=== PATIENT | female | born 1985 | race Two or more races ===

== ENCOUNTER → 2018-03-02 | Outpatient (REF) | payer OTHER | LOC: M LAB REF 12:04 | DX: R50.9 Fever, unspecified (principal) | CPT/HCPCS: 87086 ==

== ENCOUNTER → 2018-03-11 | Outpatient (CLI) | payer OTHER | LOC: M LRY 09:38 | DX: R91.8 Other nonspecific abnormal finding of lung field (principal) | CPT/HCPCS: 71046 ==

== ENCOUNTER → 2018-12-07 | Outpatient (CLI) | payer OTHER ==
[2018-12-07 07:12] LABS: BLOOD UREA NITROGEN 7 MG/DL (7-18); CALCIUM LEVEL 8.6 MG/DL (8.5-10.1); CARBON DIOXIDE LEVEL 27 MEQ/L (21-32); CHLORIDE LEVEL 105 MEQ/L (98-107); CREATININE FOR GFR 0.63 MG/DL (0.55-1.30); FREE THYROXINE INDEX 3.1 % (1.3-4.8); GLOMERULAR FILTRATION RATE > 60.0 (>60); GLUCOSE, FASTING 89 MG/DL (70-100); MAGNESIUM LEVEL 2.3 MG/DL (1.8-2.4); POTASSIUM SERUM 3.6 MEQ/L (3.5-5.1); SODIUM LEVEL 139 MEQ/L (136-145); T UPTAKE 27 % (30-39); THYROXINE (T4) 11.5 UG/DL (4.5-12.0)
== END ==
LOC: M LAB 06:07
PROVIDERS: ATTEND Internal Medicine Cardiovascular Disease
DX: R00.2 Palpitations (principal)

== ENCOUNTER 2019-01-31 07:39 | Day surgery (SDC) | payer OTHER ==
[~2019-01-31] VITALS: Ht 157.5 cm; Wt 56.7 kg
[~2019-01-31 07:39] MED LIST: ALLE180T33 PO; FLON1SPR; LR 1,000 ML IV SCH; MONOTAB PO; MULT-40 PO; SM HTAB3 PO; VITA500075 PO
[2019-01-31 08:08] LABS: URINE PREG TEST NEGATIVE (NEGATIVE)
[2019-01-31] MEDS ORDERED: LIDOCAINE 2% INJ 100 MG/5 ML SDV (FOR ANES.) As Ordered ONE (09:26)
[2019-01-31] MEDS ORDERED: PROPOFOL 200 MG/20 ML VIAL As Ordered ONE (09:26)
[2019-01-31] MEDS ORDERED: ROCURONIUM BROMIDE 50 MG/5 ML VIAL As Ordered ONE (09:26)
[2019-01-31] MEDS ORDERED: ONDANSETRON 4MG/2ML VIAL (J2405) As Ordered ONE (09:29)
[2019-01-31] MEDS ORDERED: dexameTHASONE 4 MG/ML 1ML VIAL (J1100) As Ordered ONE (09:33)
[2019-01-31] MEDS ORDERED: KETOROLAC 60 MG/2 ML VIAL (J1885) As Ordered ONE (09:34)
[2019-01-31] MEDS ORDERED: fentaNYL 250 MCG/5 ML INJECTION (J3010) As Ordered ONE (09:35)
[2019-01-31] MEDS ORDERED: MIDAZOLAM INJ 2 MG/2 ML VIAL (J2250) As Ordered ONE (09:35)
[2019-01-31] MEDS ORDERED: SUGAMMADEX SODIUM 500 MG/5 ML VIAL (BRIDION) As Ordered ONE (12:00)
[2019-01-31] MEDS ORDERED: IBUPROFEN 600 MG TAB PO PRN (13:15)
[2019-01-31] MEDS ORDERED: LR 1,000 ML IV SCH ×2 (13:15)
[2019-01-31] MEDS ORDERED: METOCLOPRAMIDE INJ 10MG/2ML VIAL (J2765) IV PRN (13:15)
[2019-01-31] MEDS ORDERED: fentaNYL 100 MCG/2 ML INJECTION (J3010) IV PRN (13:15)
[2019-01-31] MEDS ORDERED: ONDANSETRON 4MG/2ML VIAL (J2405) IV PRN (13:15)
[2019-01-31] MEDS ORDERED: NORCO, ANEXSIA 5/325MG TABLET (HYDROcodone/ACETAMINOPHEN) PO PRN (13:15)
[2019-01-31] MEDS ORDERED: HYDROMORPHONE HCL 0.5 MG/ 0.5 ML SYRINGE (J1170 PER 1) IV PRN (13:15)
[2019-01-31] MEDS ORDERED: PERCOCET 5MG/325MG TAB PO PRN (13:15)
[2019-01-31 15:05] VITALS: BP 105/59
--- NOTE | 2019-01-31 21:25 | RO ---
DATE OF PROCEDURE: 01/31/2019 PREOPERATIVE DIAGNOSIS: Desire for permanent sterilization by salpingectomy. POSTOPERATIVE DIAGNOSIS: Desire for permanent sterilization by salpingectomy. PROCEDURE: Laparoscopy with bilateral salpingectomy and some incidental lysis of adhesions. SURGEON: Dr. Melodie Flores PICK PULLING MACHINE TENDER: None. ANESTHESIA: General endotracheal anesthesia. DESCRIPTION OF PROCEDURE: Joamr was brought to the operating room where sufficient general endotracheal anesthesia was induced, and she was prepped, draped and positioned in the usual sterile fashion with the uterine manipulator placed after the uterus had been sounded to 8 and the bladder emptied. Attention was then turned to the abdomen where a semilunar incision was made at the base of the umbilicus and sharp and blunt dissection continued through subcutaneous tissues to the level of the rectus fascia, which was elevated with Jeff clamps, transversely incised and secured with #0 Vicryl retention suture. The peritoneum was entered under direct visualization in an open laparoscopic technique, and the Desiree cannula placed and secured with the #0 Vicryl retention sutures, following which CO2 insufflation was begun. After adequate CO2 insufflation, the peritoneal cavity was visualized. There were normal shiny peritoneal surfaces throughout without excrescence, ascites, nor exudate. There were some minor adhesions, filmy adhesions of the descending colon, which did not distort its location very much. There was also a noticeably longer than average normal appearing appendix, which happened to be dropping down into the posterior cul-de-sac on this evaluation. With Trendelenburg, the bowel and other tissues shifted out of the way nicely, and we were able to use the uterine manipulator to elevate it so that we could use the #45 Enseal to go through the operative scope and simply carefully cauterize along the mesentery of the fallopian tubes, starting first on the right and then moving to the left. But we had removed the right, then used the grasper to bring it right out the operative port at the umbilicus, and then replaced the scope, completed the dissection on the left tube with care taken not to injure the ovaries. And having removed the left tube, we carefully evaluated the dissection. There was no evidence of significant bleeding or other injury, and completed taking some pictures to visualize the abdomen and noted those minor adhesions on the left side, so cold scissors without cautery were used to just take those filmy adhesions down and the procedure was then ended with both tubes sent for pathology specimen. The CO2 was allowed to escape the abdomen. The Desiree cannula was removed from the umbilicus. The #0 Vicryl retention sutures were used to close the fascial layer, and then the skin was closed in a subcuticular stitch of #3-0 Vicryl with good approximation and hemostasis achieved. A dry sterile dressing was then applied. Estimated blood loss for the procedure was about 3 mL. Fluid replacement was crystalloid. Complications: None. Condition and Disposition: Jomar tolerated the procedure well and was recovering in the recovery room in good condition.
== END 2019-01-31 15:05 | disposition home or self-care (01) ==
LOC: M SDC 07:39
PROVIDERS: ATTEND Obstetrics & Gynecology
DX: Z30.2 Encounter for sterilization (principal); N73.6 Female pelvic peritoneal adhesions (postinfective); G43.909 Migraine, unspecified, not intractable, without status migrainosus; Z79.899 Other long term (current) drug therapy; R01.1 Cardiac murmur, unspecified
CPT/HCPCS: 58661; 84703; 88302; J1100; J1885; J2250; J2405; J3010